=== PATIENT | female | born 1985 | race Caucasian/White ===

== ENCOUNTER 2017-02-05 09:21 | Inpatient (IN) | payer MEDICAID ==
[2017-02-05] VITALS (24 sets, daily range): BP systolic 93–120; BP diastolic 39–58; PULSE 74–96; RESP 17–19; TEMP 98–98.5
[~2017-02-05] VITALS: Ht 167.6 cm; Wt 72.1 kg
[~2017-02-05 09:21] MED LIST: DOXY100T PO; LITH300C2 PO; PERC5TAB12 PO; SERO100T PO
[2017-02-05] MEDS ORDERED: LACTATED RINGER'S 1000 ML INJ 500 ML IV ONE (10:17)
[2017-02-05] MEDS ORDERED: TERBUTALINE INJ 1 MG/ML AMP SQ ONE ×2 (10:30→12:15)
[2017-02-05] MEDS ORDERED: CALCIUM GLUCONATE 10% 1 GM/10 ML VIAL IV PRN (10:30)
[2017-02-05] MEDS ORDERED: SODIUM CHLORIDE 0.9% FLUSH 10 ML FLUSH IV FLUSH PRN (10:30)
[2017-02-05] MEDS ORDERED: ONDANSETRON HCL 4 MG/2 ML VIAL IV PRN (10:30)
[2017-02-05] MEDS ORDERED: ACETAMINOPHEN 325 MG TAB PO PRN (10:30)
--- NOTE | 2017-02-05 10:43 | PD ---
HPI Chief Complaint contractions Date Seen: February 05, 2017 Travel History International Travel<30 Days: No Contact w/Intl Traveler<30Days: No History of Present Illness HPI Ms. Reno is a 31-year-old at an estimated 30 4/7 weeks (7/7 EDC per patient based on prior US at [facility]) presents with complaint of contractions. Patient states that she began feeling contractions yesterday which remitted spontaneously; patient awoke this morning at 2:30 AM with more contractions which gradually increased in intensity and frequency so that they are now occurring every 57 minutes apart. Patient reports 9/10 pressure pain with contractions. Patient states that she is had vaginal bleeding which she describes as mixed in with mucus for the past couple days; patient states that this has lessened today so she only noticed one small clot this morning. Patient also reports recent vaginal discharge. Patient reports normal movement. On review of systems, patient also reveals headache which she describes as migraine-like, chronic weakness, and chronic anxiety regarding social issues which she states gives her chest pain and shortness of breath. Patient does not report dysuria or leg swelling. Patient states she does not have care at this time. She was treated at [facility] for UTI earlier in ; she states ultrasound performed at this time. Patient states she has not had labs drawn this gestation. Patient states that she uses IV Subutex illicitly; she also uses occasional Xanax. Patient denies any known history of STDs. Para: 1 : 6 Miscarriage: 4 History Past Medical History Narrative Medical Patient reports prior UTI during treated at [facility] Polysubstance abuse Ectopic Obstetric History Obstetric History 041 Patient had multiple D&Cs for miscarriages section was low transverse indicated by failure to progress Past Surgical History Narrative Surgical section 1 in 2011 Multiple D&Cs for miscarriages Family History Narrative Family History Arthritis Unspecified heart problems Hepatitis C Cirrhosis Social History Narrative Social History Patient reports using nonprescribed IV Subutex Patient reports occasional Xanax usage Patient denies recent drinking Patient denies other illicit drugs Alcohol Use: No Substance Abuse: Yes Allergies-Medications (Allergen,Severity, Reaction): Coded Allergies: Lortab (Verified Allergy, Severe, Hives, 02/05/17) Penicillin (Verified Allergy, Severe, HIVES, 02/05/17) Home Meds Active Scripts Metronidazole 250 Mg [id number] Mg PO TID #30 TAB Ref 0 Prov:Simba Manzo MD R2 02/05/17 Oxycodone-Acetaminophen 5-325 mg (Percocet 5-325 mg)Oxycodone 5/325 Acetaminophen Tab1 Tab PO Q6H PRN (PAIN) #10 TAB Prov:Leroy Carreno MD 12/15/14 Doxycycline Hyclate 100 mg 100 Mg Tab1 Tab PO Q12H 14 Days Prov:Leroy Carreno MD 12/15/14 Reported Medications Quetiapine Fumarate 100 mg (Seroquel 100 mg)100 Mg TabUnknown Dose PO DIRECTED 12/15/14 [place] Carbonate (Eskalith)300 Mg [id number] Mg PO BID 11/02/14 Review of Systems General / Constitutional: No: Fever, Chills HENT: Headaches Cardiovascular: Chest Pain or Discomfort (with anxiety) Respiratory: Short of Breath (with anxiety) Gastrointestinal: Abdominal Pain (with contraction) Genitourinary: No: Dysuria Physical Exam O2 sat 100% HR 93 RR 20 T 98.3 BP 110/70s Narrative GENERAL: Well-nourished, well-developed patient. SKIN: Warm and dry. scattered scabs. HEAD: Normocephalic and atraumatic. EYES: No scleral icterus. No injection or drainage. ENT: No nasal drainage noted. Mucous membranes pink. Airway patent. NECK: Supple, trachea midline. No JVD. CARDIOVASCULAR: Regular rate and rhythm without murmurs, gallops, or rubs. RESPIRATORY: Breath sounds equal bilaterally. No accessory muscle use. ABDOMEN/GI: Abdomen soft, non-tender, bowel sounds present, no rebound, no guarding Gravid to approximately 28 weeks via fundal height EXTREMITIES: No cyanosis or edema. NEUROLOGICAL: Awake and alert. Motor and sensory function grossly within normal limits GENITOURINARY: Performed by Dr. Watts with speculum followed by cervical check External Genitalia: intact and normal in appearance; no external lesions Vaginal vault: Abundant whitish discharge with mucus / purulent appearance Cervix: Cervical inflammation in association with suspected purulent mucus discharge suggestive of cervicitis Dilatation: Closed Membranes: Initially Amnisure negative Uterine Contractions: Every 4 minutes FHT's: Category: 1 Baseline: 130 Reactive: Y Variability: Mod Decels: None Data Data Orders Admit To Inpatient (02/05/17 ) Vital Signs (Adult) Q4H (02/05/17 10:17) Activity Bed Rest (02/05/17 10:17) Activity Bed Rest With Brp (02/05/17 10:17) Intake + Output NANCY.QSHIFT (02/05/17 10:17) Heart CONTINUOUS (02/05/17 10:17) Lactated Ringer's 1000 Ml Inj (Lr 1000 M (02/05/17 10:17) Sodium Chloride 0.9% Flush (Ns Flush) (02/05/17 10:30) Sodium Chloride 0.9% Flush (Ns Flush) (02/05/17 21:00) Betamethasone Inj (Celestone Soluspan In (02/05/17 12:00) Calcium Gluconate Inj (Calcium Gluconate (02/05/17 10:30) Acetaminophen (Tylenol) (02/05/17 10:30) Ondansetron Inj (Zofran Inj) (02/05/17 10:30) Lactated Ringer's 1000 Ml Inj (Lr 1000 M (02/05/17 10:17) Drug Screen, Random Urine (02/05/17 10:17) Rubella Immune Status (02/05/17 10:17) Hepatitis Profile (02/05/17 10:17) Rapid Plasma Regin (Rpr) W Ttr (02/05/17 10:17) Type And Screen (02/05/17 10:17) Complete Blood Count With Diff (02/05/17 10:17) Special Serology (02/05/17 10:17) Inpatient Certification (02/05/17 ) Terbutaline Inj (Brethine Inj) (02/05/17 10:30) Fentanyl Inj (Fentanyl Inj) (02/05/17 12:00) Lactated Ringer's 1000 Ml Inj (Lr 1000 M (02/05/17 10:30) Fibronectin (02/05/17 10:27) Pamg-1 Test .ONCE (02/05/17 10:27) MDM Medical Record Reviewed: Yes Narrative Course / MDM 31-year-old at an estimated 30 4/7 weeks (7/7 EDC per patient based on prior US at [facility]) presents with complaint of contractions -No care -Cervical exam suggestive of mucus/purulent discharge in association with cervicitis -Contractions every 47 minutes on CTG -Category 1 rhythm -Substance abuse during with IV Subutex Plan: - labs ordered -Mucopurulent cervicitis -Due to penicillin allergy, will treat with azithromycin and clindamycin -Will obtain wet prep, urinary Chlamydia, urinary gonorrhea -Contractions -Will give patient 2 L LR boluses -Will give terbutaline 25 mg -Will give fentanyl 50 g -We'll check fibronectin due to is a contractions -We'll check Amnisure due to large quantity of fluid (mucopurulent) in the vaginal vault -Continue to monitor heart rate, presence of contractions -Substance abuse- will check UDS Updated Plan: Will plan to admit patient for further monitoring and Betamethasone x2 doses. Diagnosis Diagnosis: Primary Impression: Cervicitis Additional Impressions: contractions Drug use No care in current Disposition: 01 DISCHARGE HOME Condition: Stable Scripts Metronidazole 250 Mg [id number] Mg PO TID #30 TAB Ref 0 Prov:Simba Manzo MD R2 02/05/17 Referrals: [facility] 1 week Patient Instructions: Abdominal Pain in (ED), Early Labor Signs (ED) , Labor (ED), General Instructions Simba Manzo MD R2 February 05, 2017 10:43
[2017-02-05] MEDS: LACTATED RINGER'S 1000 ML INJ 1,000 ML IV SCH ×5 (11:03→22:55)
[2017-02-05 11:29] LABS: BACTERIA, URINE FEW /hpf; BARBITURATES, URINE NEG (NEG); BLOOD, URINE SMALL (NEG); COMMENT (UR) CULTURE INDICATED; CULTURE IF INDICATED CULTURE INDICATED; GLUCOSE,URINE NEG (NEG); KETONE, URINE NEG (NEG); MUCUS URINE FEW /lpf (OCC); NITRITE,URINE NEG (NEG); SQUAMOUS EPITHELIAL CELL URINE 10 /hpf (0-5); TRANSITIONAL EPI CELLS, URINE <1 /hpf; URINE COLOR DARK-YELLOW (YELLW/STRAW)
[2017-02-05 11:37] LABS: AMPHETAMINE, URINE POS (NEG); COCAINE, URINE POS (NEG)
[2017-02-05] MEDS ORDERED: METR250T15 PO (11:42)
[2017-02-05] MEDS ORDERED: AZITHROMYCIN IV ONE ×2 (12:00)
[2017-02-05] MEDS ORDERED: CLINDAMYCIN INJ 900 MG in SODIUM CHLORIDE 0.9% INJ 100 ML IV ONE (12:00)
[2017-02-05] MEDS ORDERED: BETAMETHASONE SOD PHOS/ACETATE SUSP 30 MG/5 ML VIAL IM SCH (12:00)
[2017-02-05] MEDS ORDERED: SODIUM CHLORID 0.9% IV ONE (12:00)
[2017-02-05] MEDS ORDERED: SODIUM CHLOR 0.9% IV ONE (12:00)
[2017-02-05] MEDS ORDERED: BETAMETHASONE SOD PHOS/ACETATE SUSP 30 MG/5 ML VIAL IM ONE (12:30)
--- NOTE | 2017-02-05 12:36 | HHI.HP ---
HPI Chief Complaint Abdominal pain Date Seen: February 05, 2017 Travel History International Travel<30 Days: No Contact w/Intl Traveler<30Days: No History of Present Illness HPI Patient 31-year-old white female previous at 30 weeks with little to no care presents complaining of abdominal pain. heart rate tracing is reactive and she is jerald every 4-5 minutes. No leakage of fluid patient has a long history of drug use and abuse she is on IV Subutex now takes benzodiazepine Para: 1 : 6 : 4 History Past Surgical History Narrative Surgical 1 and multiple elective terminations Social History Narrative Social History Patient's known drug abuser and is on IV Subutex abdominal street somewhere and takes occasional benzodiazepines however her drug screen today was positive for amphetamines and cocaine Alcohol Use: Yes Tobacco Use: Yes Substance Abuse: Yes Allergies-Medications (Allergen,Severity, Reaction): Coded Allergies: Lortab (Unverified Allergy, Severe, Hives, 12/15/14) Penicillin (Verified Allergy, Severe, HIVES, 12/15/14) Home Meds Active Scripts Metronidazole 250 Mg [id number] Mg PO TID #30 TAB Ref 0 Prov:Simba Manzo MD R2 02/05/17 Oxycodone-Acetaminophen 5-325 mg (Percocet 5-325 mg)Oxycodone 5/325 Acetaminophen Tab1 Tab PO Q6H PRN (PAIN) #10 TAB Prov:Leroy Carreno MD 12/15/14 Doxycycline Hyclate 100 mg 100 Mg Tab1 Tab PO Q12H 14 Days Prov:Leroy Carreno MD 12/15/14 Reported Medications Quetiapine Fumarate 100 mg (Seroquel 100 mg)100 Mg TabUnknown Dose PO DIRECTED 12/15/14 [place] Carbonate (Eskalith)300 Mg [id number] Mg PO BID 11/02/14 Review of Systems General / Constitutional: No: Fever, Weight Gain, Chills, Other Eyes: No: Diploplia, Blurred Vision, Visual changes, Pain, Photophobia HENT: No: Headaches, Vertigo, Lightheadedness Cardiovascular: No: Irregular Rhythm, Chest Pain or Discomfort, Palpitations, Tachycardia, Syncope, Varicosities, Edema, Cyanosis Respiratory: No: Cough, Short of Breath, Other Gastrointestinal: Abdominal Pain Genitourinary: No: Decreased Urinary Output, Oliguria Musculoskeletal: No: Limited ROM, Weakness, Cramping, Edema, Pain Skin: No Rash, No Itching, No Dryness, No Lumps, No Change in Pigmentation, No Change in Nails, No Alopecia, No Lesions Neurologic: No: Weakness, Dizziness, Syncope, Focal Abnormalities, Coordination Problem, Headache, Slurred Speech, Seizures Psychiatric: No: Depression, Suicidal Ideations, Homicidal Ideation Endocrine: No: Heat Intolerance, Cold Intolerance, Polydipsia, Polyuria, Other Physical Exam Vital Signs Date Time Temp Pulse Resp B/P Pulse Ox O2 Delivery O2 Flow Rate FiO2 02/05/17 11:10 81 02/05/17 11:05 81 02/05/17 11:00 79 02/05/17 10:55 78 02/05/17 10:50 74 02/05/17 10:45 79 02/05/17 10:40 81 02/05/17 10:35 93 02/05/17 10:30 78 02/05/17 10:25 75 02/05/17 10:20 79 02/05/17 10:15 81 02/05/17 10:10 77 02/05/17 10:05 80 02/05/17 10:00 80 Narrative GENERAL: Well-nourished, well-developed patient. SKIN: Warm and dry. HEAD: Normocephalic and atraumatic. EYES: No scleral icterus. No injection or drainage. ENT: No nasal drainage noted. Mucous membranes pink. Airway patent. NECK: Supple, trachea midline. No JVD. CARDIOVASCULAR: Regular rate and rhythm without murmurs, gallops, or rubs. RESPIRATORY: Breath sounds equal bilaterally. No accessory muscle use. BREASTS: Bilateral exam showed no masses , no retractions, no nipple discharge. ABDOMEN/GI: Abdomen soft, non-tender, bowel sounds present, no rebound, no guarding Gravid to [30-] weeks size Fundal Height: [28-] GENITOURINARY: External Genitalia: intact and normal in appearance Speculum exam in the vagina shows rebeca pus per cervical os. Just pooling of pus in the posterior fornix, pus can be seen coming from the cervix, amnio sure done twice was negative fibronectin done which was positive that was done through a pool of pus, wet prep was positive for clue cells but no trichomoniasis or yeast Cervix: [Closed-] Dilatation: [-Closed] Effacement: [-] Thick Station: [-3] Membranes: [intact ] Uterine Contractions: [Initially every 4 minutes after hydration and terbutaline every 10-12 minutes-] FHT's: Category: [-1] Baseline: [-133] Reactive: [-yes] Variability: [-mod] Decels: [-none] EXTREMITIES: No cyanosis or edema. BACK: Nontender without obvious deformity. No CVA tenderness. NEUROLOGICAL: Awake and alert. Motor and sensory grossly within normal limits. Five out of 5 muscle strength in all muscle groups. Normal speech. Data Data Orders Admit To Inpatient (02/05/17 ) Vital Signs (Adult) Q4H (02/05/17 10:17) Activity Bed Rest (02/05/17 10:17) Activity Bed Rest With Brp (02/05/17 10:17) Intake + Output NANCY.QSHIFT (02/05/17 10:17) Heart CONTINUOUS (02/05/17 10:17) Lactated Ringer's 1000 Ml Inj (Lr 1000 M (02/05/17 10:17) Sodium Chloride 0.9% Flush (Ns Flush) (02/05/17 10:30) Sodium Chloride 0.9% Flush (Ns Flush) (02/05/17 21:00) Betamethasone Inj (Celestone Soluspan In (02/05/17 12:00) Calcium Gluconate Inj (Calcium Gluconate (02/05/17 10:30) Acetaminophen (Tylenol) (02/05/17 10:30) Ondansetron Inj (Zofran Inj) (02/05/17 10:30) Lactated Ringer's 1000 Ml Inj (Lr 1000 M (02/05/17 10:17) Rubella Immune Status (02/05/17 10:17) Hepatitis Profile (02/05/17 10:17) Rapid Plasma Regin (Rpr) W Ttr (02/05/17 10:17) Type And Screen (02/05/17 10:17) Complete Blood Count With Diff (02/05/17 10:17) Special Serology (02/05/17 10:17) Inpatient Certification (02/05/17 ) Terbutaline Inj (Brethine Inj) (02/05/17 10:30) Fentanyl Inj (Fentanyl Inj) (02/05/17 12:00) Lactated Ringer's 1000 Ml Inj (Lr 1000 M (02/05/17 10:30) Fibronectin (02/05/17 10:27) Pamg-1 Test .ONCE (02/05/17 10:27) Wet Prep Profile (02/05/17 10:40) Urinalysis - C+S If Indicated (02/05/17 10:40) Ob/Psych Drug Screen, Urine (02/05/17 10:40) Azithromycin Inj (Zithromax Inj) (02/05/17 12:00) Clindamycin Inj (Cleocin Inj) (02/05/17 12:00) Gc And Chlamydia Pcr (02/05/17 10:59) Urine Culture (02/05/17 10:30) Azithromycin Inj (Zithromax Inj) (02/05/17 12:00) Ur Bath Salts (02/05/17 10:30) Ur Heroin (02/05/17 10:30) Ur K2 Spice (02/05/17 10:30) Ur Ecstasy (02/05/17 10:30) Ur Methadone (02/05/17 10:30) Phencyclidine Urine (Pcp) (02/05/17 10:30) Fentanyl Inj (Fentanyl Inj) (02/05/17 12:15) Terbutaline Inj (Brethine Inj) (02/05/17 12:15) Betamethasone Inj (Celestone Soluspan In (02/05/17 12:30) Equip, Iv Pump Use Of (02/05/17 12:23) Labs + FFN Laboratory Tests Test 02/05/17 10:30 Urine Color DARK-YELLOW Urine Turbidity HAZY Urine pH 6.0 Urine Specific [place] 1.025 Urine Protein TRACE Urine Glucose (UA) NEG Urine Ketones NEG Urine Occult Blood SMALL Urine Nitrite NEG Urine Bilirubin SMALL Urine Urobilinogen 2.0 Urine Leukocyte Esterase LARGE Urine RBC 4 Urine WBC 84 Urine WBC Clumps RARE Urine Squamous Epithelial 10 Cells Urine Transitional Epithelial <1 Cells Urine Bacteria FEW Urine Mucus FEW Microscopic Urinalysis Comment CULTURE INDICATED Clue Cells (Wet Prep) PRESENT Vaginal Trichomonas (Wet Prep) NONE SEEN Vaginal Yeast (Wet Prep) NONE SEEN Fibronectin POSITIVE Urine Opiates Screen NEG Urine Barbiturates Screen NEG Urine Amphetamines Screen POS Urine Benzodiazepines Screen POS Urine Cocaine Screen POS Urine Cannabinoids Screen NEG Date/Time Procedure Status Source Growth 02/05/17 10:30 Urine Culture Received Urine Clean Catch Pending Assessment/Plan Assessment and Plan Patient is 31-year-old white female previous now 30 weeks gestation with very little care. With a EDC of 04/12/15, presents for abdominal pain. He is having some vaginal discharge and leakage amnio sure was negative 2 wet prep done from a speculum exam was positive for clue cells and there is a purulent cervicitis noted with a large amount of pus in the posterior vagina, fibronectin done through that pool of pus was positive patient is given a liter of IV fluid 2 doses subcutaneous terbutaline and a 50 mics of IV fentanyl this demonstrates the contractions about every 10-12 minutes. Also given IV Zithromax and clindamycin for her infection Impression-- purulent cervicitis at 30 weeks gestation in a previous that is stimulating contractions and with a positive fibronectin feeling more workup is needed. She's received IM steroids now we'll continue her IV antibiotics now and since she has no transportation again get back care for another shot of steroids will just keep her for observation, check cervical length ultrasound and estimated weight and growth parameters on ultrasound , continued IV antibiotics and watch for contraction activity. Tomorrow if stable and not jerald we'll give her second dose of steroids and have her discharged on oral Flagyl and Zithromax Toby aWtts II, MD February 05, 2017 12:36
[2017-02-05 13:14] LABS: CHLAMYDIA PCR NOT DETECTED (NOT DETECT); NEISSERIA PCR NOT DETECTED (NOT DETECT)
[2017-02-05 14:24] LABS: AUTOMATED NEUTROPHIL # 16.4 TH/MM3 (1.8-7.7); BASOPHIL % 0.1 % (0.0-2.0); EOSINOPHIL # 0.1 TH/MM3 (0-0.4); EOSINOPHIL % 0.3 % (0.0-4.0); HEMATOCRIT 26.5 % (35.0-46.0); HEMO FLAGS DIFF FINAL; LYMPH % 12.6 % (9.0-44.0); LYMPHOCYTE # 2.5 TH/MM3 (1.0-4.8); MEAN CELL VOLUME 81.3 FL (80.0-100.0); MEAN CORPUSCULAR HEMOGLOBIN 26.5 PG (27.0-34.0); MEAN CORPUSCULAR HGB CONC 32.6 % (32.0-36.0); MONO % 5.6 % (0.0-8.0); NEUT % 81.4 % (16.0-70.0); PLATELET COUNT 467 TH/MM3 (150-450); RED BLOOD COUNT 3.26 MIL/MM3 (4.00-5.30); WHITE BLOOD COUNT 20.1 TH/MM3 (4.0-11.0)
[2017-02-05 15:05] LABS: RUBELLA IGG ANTIBODY 156.8 IU/mL (10.0-500.0); RUBELLA STATUS IMMUNE (IMMUNE)
[2017-02-05] MEDS: CLINDAMYCIN INJ 900 MG in SODIUM CHLORIDE 0.9% INJ 100 ML IV SCH (20:30)
[2017-02-05] MEDS ORDERED: TERBUTALINE INJ 1 MG/ML AMP SQ PRN (20:30)
[2017-02-05] MEDS: LORazepam 2 MG/ML VIAL IM PRN (20:43)
[2017-02-05] MEDS: SODIUM CHLORIDE 0.9% FLUSH 10 ML FLUSH IV FLUSH SCH (21:00)
[2017-02-05] MEDS ORDERED: NICOTINE 14 MG/24 HR PATCH T-DERMAL ONE (21:15)
[2017-02-06] VITALS (10 sets, daily range): BP systolic 95–111; BP diastolic 45–65; PULSE 72–96; RESP 16–20; TEMP 97.2–97.8; O2SAT 97–100
[2017-02-06] MEDS ORDERED: CLINDAMYCIN INJ 900 MG in SODIUM CHLORIDE 0.9% INJ 100 ML IV SCH ×2
[2017-02-06] MEDS: LORazepam 2 MG/ML VIAL IM PRN ×4 (04:54→20:51)
[2017-02-06] MEDS: CLINDAMYCIN INJ 900 MG in SODIUM CHLORIDE 0.9% INJ 100 ML IV SCH ×2 (04:54→11:18)
[2017-02-06] MEDS: LACTATED RINGER'S 1000 ML INJ 1,000 ML IV SCH ×6 (04:55→14:09)
--- NOTE | 2017-02-06 07:37 | PD.OB.ANTE ---
Subjective Diagnosis: (1) contractions Diagnosis: Principal (2) No care in current Diagnosis: Principal Interval History Ms. Reno was afebrile with stable vital signs overnight. Patient continues to reports significant abdominal pain this morning; patient suggests this occurs in intervals and is similar to contractions. Objective Vital Signs Vital Signs Date Time Temp Pulse Resp B/P Pulse Ox O2 Delivery O2 Flow Rate FiO2 02/06/17 01:39 80 95/45 02/05/17 19:26 78 93/42 02/05/17 19:25 98.0 02/05/17 18:19 81 115/56 02/05/17 18:13 98.0 02/05/17 18:13 98.5 17 02/05/17 18:05 82 95/39 02/05/17 15:14 89 120/58 02/05/17 15:13 19 02/05/17 14:11 98.2 02/05/17 13:34 96 113/51 02/05/17 13:34 18 02/05/17 11:10 81 02/05/17 11:05 81 02/05/17 11:00 79 02/05/17 10:55 78 02/05/17 10:50 74 02/05/17 10:45 79 02/05/17 10:40 81 02/05/17 10:35 93 02/05/17 10:30 78 02/05/17 10:25 75 02/05/17 10:20 79 02/05/17 10:15 81 02/05/17 10:10 77 02/05/17 10:05 80 02/05/17 10:00 80 Lab & Micro Results Test 02/05/17 02/05/17 10:30 14:10 Urine Color DARK-YELLOW Urine Turbidity HAZY Urine pH 6.0 Urine Specific [place] 1.025 Urine Protein TRACE mg/dL Urine Glucose (UA) NEG mg/dL Urine Ketones NEG mg/dL Urine Occult Blood SMALL Urine Nitrite NEG Urine Bilirubin SMALL Urine Urobilinogen 2.0 MG/DL Urine Leukocyte Esterase LARGE Urine RBC 4 /hpf Urine WBC 84 /hpf Urine WBC Clumps RARE Urine Squamous Epithelial 10 /hpf Cells Urine Transitional Epithelial <1 /hpf Cells Urine Bacteria FEW /hpf Urine Mucus FEW /lpf Microscopic Urinalysis Comment CULTURE INDICATED Clue Cells (Wet Prep) PRESENT Vaginal Trichomonas (Wet Prep) NONE SEEN Vaginal Yeast (Wet Prep) NONE SEEN Fibronectin POSITIVE Urine Opiates Screen NEG Urine Barbiturates Screen NEG Urine Amphetamines Screen POS Urine Benzodiazepines Screen POS Urine Cocaine Screen POS Urine Cannabinoids Screen NEG Chlamydia trachomatis DNA NOT DETECTED (PCR) Neisseria gonorrhoeae DNA NOT DETECTED (PCR) White Blood Count 20.1 TH/MM3 Red Blood Count 3.26 MIL/MM3 Hemoglobin 8.6 GM/DL Hematocrit 26.5 % Mean Corpuscular Volume 81.3 FL Mean Corpuscular Hemoglobin 26.5 PG Mean Corpuscular Hemoglobin 32.6 % Concent Red Cell Distribution Width 14.0 % Platelet Count 467 TH/MM3 Mean Platelet Volume 8.0 FL Neutrophils (%) (Auto) 81.4 % Lymphocytes (%) (Auto) 12.6 % Monocytes (%) (Auto) 5.6 % Eosinophils (%) (Auto) 0.3 % Basophils (%) (Auto) 0.1 % Neutrophils # (Auto) 16.4 TH/MM3 Lymphocytes # (Auto) 2.5 TH/MM3 Monocytes # (Auto) 1.1 TH/MM3 Eosinophils # (Auto) 0.1 TH/MM3 Basophils # (Auto) 0.0 TH/MM3 CBC Comment DIFF FINAL Differential Comment Rubella Immunity Screen IMMUNE Rubella Antibody, Quantitative 156.8 IU/mL Blood Type A POSITIVE Antibody Screen NEGATIVE Date/Time Procedure Status Source Growth 02/05/17 10:30 Urine Culture Received Urine Clean Catch Pending Physical Exam GENERAL: Well-nourished, well-developed patient. SKIN: Warm and dry. scattered scabs. HEAD: Normocephalic and atraumatic. EYES: No scleral icterus. No injection or drainage. ENT: No nasal drainage noted. Mucous membranes pink. Airway patent. NECK: Supple, trachea midline. No JVD. CARDIOVASCULAR: Regular rate and rhythm without murmurs, gallops, or rubs. RESPIRATORY: Breath sounds equal bilaterally. No accessory muscle use. ABDOMEN/GI: Abdomen soft, non-tender, bowel sounds present, no rebound, no guarding Gravid to approximately 28 weeks via fundal height EXTREMITIES: No cyanosis or edema. NEUROLOGICAL: Awake and alert. Motor and sensory function grossly within normal limits GENITOURINARY: Performed by Dr. Watts 02/05 with speculum followed by cervical check External Genitalia: intact and normal in appearance; no external lesions Vaginal vault: Abundant whitish discharge with mucus / purulent appearance Cervix: Cervical inflammation in association with suspected purulent mucus discharge suggestive of cervicitis Dilatation: Closed Membranes: Initially Amnisure negative Uterine Contractions: none/irritability FHT's: Category: 1 Baseline: 130 Reactive: Y Variability: Mod Decels: None Assessment and Plan Problem List: (1) contractions Status: Acute (2) No care in current Status: Acute Assessment and Plan 31-year-old at an estimated 30 4/7 weeks (7/7 EDC per patient based on prior US at [facility]) presents with complaint of contractions -No care -H CS delivery Plan: - labs ordered -Mucopurulent cervicitis Impression: Wet prep with Clue cells. Chlamydia/Gonorrhea negative. -Due to penicillin allergy, will treat with azithromycin and clindamycin - Contractions Impression: FFN +. Amnisure negative x2 US obtained 02/06: GA by US- 29 1/7 weeks. Cervical length not obtained as patient declined TV US. Placenta posterior, grade 2-3. Fetus with isolated liver calcification and echogenic bowel. Torch titers, CF screen, and Parvo immunoglobulins recommended. Contractions stopped on EFM 5/2. -s/p 2 L LR boluses -s/p terbutaline 25 mg x2 -Fentanyl 50 g as needed for pain -Continue CTG -Will give Betamethasone 12mg x2 (1300 5/2 first dose) -Continue to monitor heart rate, presence of contractions -Substance abuse Impression: UDS with amphetamines, benzodiazepines, cocaine. Patient admitted to substance abuse during with IV Subutex -Patient will need follow-up with OB in near future to establish -CM consulted for assistance with resources Simba Manzo MD R2 February 06, 2017 07:37
[2017-02-06] MEDS ORDERED: BUPIVACAINE LIPOSOME PF 1.3% 20 ML VIAL ONE (07:43)
[2017-02-06] MEDS: NICOTINE 14 MG/24 HR PATCH T-DERMAL SCH (08:59)
[2017-02-06] MEDS: SODIUM CHLORIDE 0.9% FLUSH 10 ML FLUSH IV FLUSH SCH (09:00)
[2017-02-06] MEDS ORDERED: TERBUTALINE INJ 1 MG/ML AMP SQ ONE (09:30)
[2017-02-06 10:39] LABS: AUTOMATED NEUTROPHIL # 21.9 TH/MM3 (1.8-7.7); BASOPHIL % 0.1 % (0.0-2.0); HEMATOCRIT 25.3 % (35.0-46.0); HEMO FLAGS DIFF FINAL; LYMPH % 9.5 % (9.0-44.0); LYMPHOCYTE # 2.4 TH/MM3 (1.0-4.8); MEAN CELL VOLUME 81.6 FL (80.0-100.0); MEAN CORPUSCULAR HEMOGLOBIN 26.9 PG (27.0-34.0); MEAN CORPUSCULAR HGB CONC 32.9 % (32.0-36.0); MONO % 4.7 % (0.0-8.0); NEUT % 85.7 % (16.0-70.0); PLATELET COUNT 456 TH/MM3 (150-450); RED CELL DISTRIBUTION WIDTH 13.8 % (11.6-17.2); WHITE BLOOD COUNT 25.6 TH/MM3 (4.0-11.0)
[2017-02-06] MEDS ORDERED: AZITHROMYCIN INJ 500 MG in SODIUM CHLOR 0.9% 250 ML INJ 250 ML IV ONE (12:00)
[2017-02-06] MEDS ORDERED: BETAMETHASONE SOD PHOS/ACETATE SUSP 30 MG/5 ML VIAL IM ONE (12:30)
[2017-02-06] MEDS: BUPRENORPHINE HCL 8 MG SUBLINGUAL TAB SL SCH ×2 (12:47→22:30)
[2017-02-06] MEDS ORDERED: MAGNESIUM SULFATE 4 GM PREMIX 100 ML ONE (13:49)
[2017-02-06] MEDS ORDERED: MAGNESIUM SULFATE 40 GM PREMIX 1,000 ML ONE (13:49)
--- NOTE | 2017-02-06 13:51 | HHI.PR ---
APPLIQUER ZIGZAG Note Note Called to see patient for abdominal pain. Patient was due to be discharged today on antibiotics with possible detox as an outpatient. She is complaining of increasing abdominal pain over the past hour with intermittent occasional contractions noted on the monitor heart rate tracing approximately 140. Cervix was checked and it is 1/C/-1, membranes are intact vertex presentation. Patient has a previous history of section plan to move her to the labor room and start magnesium sulfate for labor prophylaxis and neuro protection. Mirna Kinney MD February 06, 2017 13:51
[2017-02-06] MEDS ORDERED: ONDANSETRON HCL 4 MG/2 ML VIAL IV PRN (14:00)
[2017-02-06] MEDS ORDERED: CALCIUM GLUCONATE 10% 1 GM/10 ML VIAL IV PRN (14:00)
[2017-02-06] MEDS ORDERED: SODIUM CHLORIDE 0.9% FLUSH 10 ML FLUSH IV FLUSH PRN ×2 (14:00→18:15)
[2017-02-06] MEDS ORDERED: MAGNESIUM SULFATE 4 GM PREMIX 100 ML IV ONE (14:00)
[2017-02-06 14:03] LABS: RAPID PLASMA REAGIN SCREEN NON-REACTIVE (NON-REACTVE)
[2017-02-06] MEDS ORDERED: MAGNESIUM SULFATE 40 GM PREMIX 1,000 ML IV SCH (14:30)
[2017-02-06] MEDS ORDERED: LACTATED RINGER'S 1000 ML INJ 1,000 ML IV SCH ×4 (14:30→23:13)
[2017-02-06] MEDS ORDERED: LACTATED RINGER'S 1000 ML INJ 1,000 ML IV ONE (15:29)
[2017-02-06] MEDS ORDERED: CLINDAMYCIN PHOS 600 MG/4 ML VIAL ONE (15:55)
[2017-02-06] MEDS ORDERED: ACETAMINOPHEN 1000 MG/100 ML VIAL IV ONE (15:55)
[2017-02-06] MEDS ORDERED: OXYTOCIN 10 UNIT/ML AMP ONE (15:55)
[2017-02-06] MEDS ORDERED: EPIDURAL-DO NOT ADMINISTER ANTICOAGULANTS PRN (16:12)
[2017-02-06] MEDS ORDERED: EPIDURAL-DIPHENHYDRAMINE HCL 50 MG/ML VIAL IV PUSH PRN (16:12)
[2017-02-06] MEDS ORDERED: EPIDURAL-DIPHENHYDRAMINE HCL 50 MG CAP PO PRN (16:12)
[2017-02-06] MEDS ORDERED: EPIDURAL-NO SYSTEMIC NARCOTICS PRN (16:12)
[2017-02-06] MEDS ORDERED: EPIDURAL-NALOXONE HCL 0.4 MG/ML AMP IV PRN (16:12)
[2017-02-06] MEDS ORDERED: CLINDAMYCIN INJ 600 MG in SODIUM CHLORIDE 0.9% INJ 100 ML IV SCH (16:30)
[2017-02-06] MEDS ORDERED: CITRIC ACID-SODIUM CITRATE LIQ 30 ML UDC PO SCH (17:00)
[2017-02-06] MEDS ORDERED: MORPHINE SULFATE PF 5 MG/10 ML VIAL ONE (17:04)
[2017-02-06] MEDS ORDERED: BUPRENORPHINE HCL 0.3 MG/1 ML VIAL ONE (17:10)
[2017-02-06 17:22] LABS: BLOOD GAS BASE EXCESS -2.3 mmol/L (-2-2); BLOOD GAS O2 HGB SATURATION 25 % (90-100); CORD BLOOD GAS HCO3 23 mmol/L (21-29); CORD BLOOD GAS PCO2 49 mmHG (34-78)
[2017-02-06 17:23] LABS: CORD BLOOD GAS PO2 17 mmHG (3.0-40.0); DRAW SITE CORD BLOOD; STAT NO
--- NOTE | 2017-02-06 17:43 | PD.OB.DELI ---
Procedure Note Section Procedure Pre Op Diagnosis: (1) Drug use (2) contractions (3) No care in current (4) 30 weeks gestation of (5) Previous delivery affecting , antepartum Post Op Diagnosis: Performed by Mirna Kinney Procedure: Repeat Low Transverse Sec Indication for delivery: Desired elective repeat , Other (active labor) Informed consent obtained: For anesthesia, For procedure Confirmed correct: Patient, Procedure, Site, Time-out taken Anesthesia: Spinal, Other (TAMI block post-op) Medication prior to procedure: Antacids, Antibiotics, IV Urinary catheter: Inserted using sterile technique Sterile preparation: Duraprep Position: Supine with wedge to left side Operative Features Skin Incision: Pfannenstiel Uterine Incision: Low transverse w/knife / blunt ext Membranes Ruptured: Previously, Appearance of fluid (light meconium) Presentation: Occiput posterior Time of : 16:36 Delivery of infant: Uneventful : Female One Minute : 8 Five Minute : 8 Weight: 1630gms Status of : Viable, Cord blood Placenta delivered: Intact, Sent to pathology Medications: Oxytocin Estimated blood loss: 500cc Procedure tolerated: Well Maternal Condition: Stable Condition: Stable Mirna Kinney MD February 06, 2017 17:43
[2017-02-06] MEDS ORDERED: OXYTOCIN 30 UNITS-500ML PREMIX 500 ML IV ONE (18:15)
[2017-02-06] MEDS ORDERED: oxyCODONE/ACETAMINOPHEN 5 MG/325 MG TAB PO PRN (18:15)
[2017-02-06] MEDS ORDERED: ONDANSETRON HCL 4 MG/2 ML VIAL IV PUSH PRN (18:15)
[2017-02-06] MEDS ORDERED: SIMETHICONE 80 MG CHEWABLE TAB PO PRN (18:15)
[2017-02-06] MEDS ORDERED: SODIUM CHLORIDE 0.9% FLUSH 10 ML FLUSH IV FLUSH SCH ×2 (21:00)
[2017-02-06 21:14] LABS: AUTOMATED NEUTROPHIL # 21.6 TH/MM3 (1.8-7.7); BASOPHIL % 0.1 % (0.0-2.0); HEMATOCRIT 23.3 % (35.0-46.0); HEMO FLAGS DIFF FINAL; LYMPH % 7.3 % (9.0-44.0); LYMPHOCYTE # 1.8 TH/MM3 (1.0-4.8); MEAN CELL VOLUME 80.9 FL (80.0-100.0); MEAN CORPUSCULAR HEMOGLOBIN 27.1 PG (27.0-34.0); MEAN CORPUSCULAR HGB CONC 33.5 % (32.0-36.0); MONO % 5.1 % (0.0-8.0); NEUT % 87.5 % (16.0-70.0); PLATELET COUNT 471 TH/MM3 (150-450); RED BLOOD COUNT 2.88 MIL/MM3 (4.00-5.30); WHITE BLOOD COUNT 24.6 TH/MM3 (4.0-11.0)
[2017-02-06 21:16] LABS: BLOOD, URINE MOD (NEG); COMMENT (UR) CULT NOT INDICATED; CULTURE IF INDICATED CULT NOT INDICATED; GLUCOSE,URINE NEG (NEG); KETONE, URINE NEG (NEG); MUCUS URINE FEW /lpf (OCC); NITRITE,URINE NEG (NEG); URINE COLOR YELLOW (YELLW/STRAW)
[2017-02-06 21:22] LABS: AMPHETAMINE, URINE NEG (NEG); BARBITURATES, URINE NEG (NEG); COCAINE, URINE NEG (NEG)
[2017-02-07 01:20] VITALS: BP 106/57; PULSE 78; RESP 18; TEMP 98.3
[2017-02-07] MEDS: oxyCODONE/ACETAMINOPHEN 5 MG/325 MG TAB PO PRN ×5 (01:21→22:08)
[2017-02-07] MEDS: IBUPROFEN 600 MG TAB PO PRN ×3 (01:21→17:39)
[2017-02-07] MEDS ORDERED: OXYTOCIN 30 UNITS-500ML PREMIX 500 ML IV PRN (04:15)
[2017-02-07 05:54] LABS: AUTOMATED NEUTROPHIL # 19.2 TH/MM3 (1.8-7.7); BASOPHIL % 0.1 % (0.0-2.0); HEMATOCRIT 21.4 % (35.0-46.0); LYMPH % 9.6 % (9.0-44.0); LYMPHOCYTE # 2.2 TH/MM3 (1.0-4.8); MEAN CELL VOLUME 81.4 FL (80.0-100.0); MEAN CORPUSCULAR HEMOGLOBIN 27.1 PG (27.0-34.0); MEAN CORPUSCULAR HGB CONC 33.3 % (32.0-36.0); NEUT % 85.3 % (16.0-70.0); PLATELET COUNT 448 TH/MM3 (150-450); RED BLOOD COUNT 2.63 MIL/MM3 (4.00-5.30); RED CELL DISTRIBUTION WIDTH 14.2 % (11.6-17.2); WHITE BLOOD COUNT 22.5 TH/MM3 (4.0-11.0)
[2017-02-07 06:10] LABS: HEMO FLAGS AUTO DIFF
--- NOTE | 2017-02-07 07:26 | MP ---
cc: BISI POSEY M.D. DATE OF SURGERY 02/06/2017 PREOPERATIVE DIAGNOSIS 1. Substance abuse during . 2. labor 3. No care for current . 4. 30 weeks gestation. 5. Previous section, desires repeat. POSTOPERATIVE DIAGNOSIS 1. Substance abuse during . 2. labor 3. No care for current . 4. 30 weeks gestation. 5. Previous section, desires repeat. PROCEDURE Repeat low transverse section without extension ESTIMATED BLOOD LOSS 500 cc ANESTHESIA Spinal DRAINS Escobar to gravity. COMPLICATIONS No complications. MEDICATIONS The patient was already on: 1. Ceftriaxone for cervicitis an additional 2. Clindamycin was given IV. FINDINGS 1. Light meconium stained amniotic fluid. 2. Infant female on the vertex presentation, occiput posterior time of was 1636 female, 's are 8 and 8, baby weighed 1630 grams, pathology placenta. DESCRIPTION OF PROCEDURE The patient taken back to the operating room, prepped and draped in the usual sterile fashion and placed in the dorsosupine position with a wedge to her left side. After adequate anesthetic was obtained, a Pfannenstiel incision was made through scar and taken down to the fascia. The fascia was nicked in the midline, extended bilaterally and taken off the rectus muscles. The muscles were divided in the midline. The anterior peritoneum was entered. The vesicouterine peritoneum was noted to be inferior to the hysterotomy incision. A hysterotomy incision was made and bluntly extended bilaterally. The amniotic fluid was noted to have meconium. The infant was delivered into the operative field, the rest of the body was delivered and handed off to the resuscitation team after a 45-second delayed cord clamping was done per request from the product test engineer. The cord blood was sent and the placenta was delivered intact spontaneously and endometrial cavity was clear with moist laparotomy sponge. Placenta was sent to pathology. The hysterotomy incision was repaired using running locking and one chromic suture with good hemostasis at closure. Gutters were rendered free of all blood and clot material. The fascia was closed with a #1 PDS in a subcuticular suture and a 3-0 Monocryl was placed in the skin. The patient tolerated the procedure well. She was taken back to the PACU where a Juan block will be placed for assistance in postoperative pain management. MD ARSH Robin/ELOISE /5:47 PM /7:14 AM
[2017-02-07 07:40] VITALS: BP 100/53; PULSE 73; RESP 18; TEMP 97.5
[2017-02-07] MEDS: CLINDAMYCIN INJ 900 MG in SODIUM CHLORIDE 0.9% INJ 100 ML IV SCH ×3 (08:00)
[2017-02-07] MEDS: NICOTINE 14 MG/24 HR PATCH T-DERMAL SCH (08:43)
--- NOTE | 2017-02-07 09:04 | HHI.OB ---
Subjective Post Operative Day: 1 Remarks Ms. Reno is a 31 yo who is POD 1 from CS (repeat) 02/06 at 1636 ( delivered at 30 5/7 weeks due to labor). Ms. Reno states that she is doing okay at this time; patient has been able to ambulate to bathroom and urinate but is still sore. Patient requests additional pain medication for abdominal pain. Per nursing staff who were present at bedside, patient has light vaginal bleeding. No shortness of breath or leg swelling. (Simba Manzo MD R2) Objective Vitals/I&O Vital Signs Date Time Temp Pulse Resp B/P Pulse Ox O2 Delivery O2 Flow Rate FiO2 02/07/17 07:40 97.5 73 18 02/07/17 07:40 100/53 02/07/17 01:20 78 106/57 02/07/17 01:20 98.3 18 02/06/17 19:20 97.8 02/06/17 19:20 74 18 111/61 02/06/17 17:50 72 16 105/62 100 02/06/17 17:35 76 16 108/65 100 02/06/17 17:20 16 100 02/06/17 17:20 80 104/57 02/06/17 17:00 97.2 02/06/17 17:00 80 104/57 02/06/17 17:00 20 97 02/06/17 14:07 96 109/62 02/06/17 13:45 20 02/06/17 13:14 87 100/57 (Simba Manzo MD R2) Result Diagram: 02/07/17 0456 Objective Remarks GENERAL: Well-nourished, well-developed patient. CARDIOVASCULAR: Regular rate and rhythm without murmurs, gallops, or rubs. RESPIRATORY: CTA B, normal rate ABDOMEN/GI: Abdomen soft, non-tender, bowel sounds present. Incision: Evidence of minimal serosanguineous drainage on dressing; no active drainage during exam Fundus: Firm, non-tender at umbilicus. GENITOURINARY: Light to moderate bleeding. EXTREMITIES: No cyanosis or edema, non-tender, without signs of DVT. Medications and IVs Current Medications Medications (Trade) Dose Ordered Sig/Rhoda Route Start Time Stop Time Status Last Admin (Tylenol) 650 mg Q4H PRN PO 02/05/17 10:30 (Ativan Inj) 1 mg Q4H PRN IM 02/05/17 20:30 02/06/17 20:51 (Habitrol 14 Mg Patch.24 Hr) 1 patch DAILY T-DERMAL 02/06/17 09:00 02/07/17 08:43 Fentanyl Citrate 25 mcg 25 mcg Q4HR PRN IV PUSH 02/06/17 07:30 02/06/17 07:44 (Magnesium Sulfate 40 Gm Premix) 1,000 ml @ 50 mls/hr Q20H IV 02/06/17 14:30 Calcium Gluconate 1 gm 1 gm ONCE PRN IV 02/06/17 14:00 02/07/17 13:59 Lactated Ringer's 1,000 ml @ 150 mls/hr Q6H40M IV 02/06/17 15:59 02/06/17 16:00 (Lr 1000 ml Inj) 1,000 ml @ 100 mls/hr Q10H IV 02/06/17 23:13 02/07/17 19:12 (NS Flush) 2 ml BID IV FLUSH 02/06/17 21:00 (NS Flush) 2 ml UNSCH PRN IV FLUSH 02/06/17 18:15 (Mylicon Chew) 80 mg QID PRN PO 02/06/17 18:15 (Motrin) 600 mg Q6H PRN PO 02/06/17 18:15 02/07/17 07:39 (Percocet 5-325 Mg) 1 tab Q4H PRN PO 02/06/17 18:15 (Percocet 5-325 Mg) 2 tab Q4H PRN PO 02/06/17 18:15 02/07/17 07:35 (Breanna-Colace) 2 tab Q12H PRN PO 02/06/17 18:15 (M-M-R Ii Inj) 0.5 ml ONCE ONCE SQ 02/07/17 16:00 02/07/17 16:01 (Boostrix Inj) 0.5 ml ONCE ONCE IM 02/07/17 16:00 02/07/17 16:01 (Zofran Inj) 4 mg Q6H PRN IV PUSH 02/06/17 18:15 Miscellaneous Information NO SYSTEMIC NARCOTICS TO BE GIVEN FO... UNSCH PRN .XX 02/06/17 16:12 02/07/17 16:11 (Narcan Inj) 0.4 mg UNSCH PRN IV 02/06/17 16:12 02/07/17 16:11 (Benadryl Inj) 25 mg Q6H PRN IV PUSH 02/06/17 16:12 02/07/17 16:11 (Benadryl) 50 mg Q6H PRN PO 02/06/17 16:12 02/07/17 16:11 02/07/17 08:42 Miscellaneous Information ALL NURSING DEPARTMENTS UNSCH PRN .XX 02/06/17 16:12 02/07/17 16:11 Lorazepam 1 mg 1 mg Q6H PRN PO 02/06/17 20:30 (Cleocin Inj/NS Inj) 106 ml @ 212 mls/hr Q8H IV 02/07/17 00:00 (Simba Manzo MD R2) Assessment/Plan Problem List: (1) contractions (2) No care in current Assessment and Plan 31 yo who is POD 1 from CS (repeat) 02/06 at 1636 (delivered at 30 5/7 weeks due to labor) Routine care Continue to monitor vital signs, vaginal bleeding Encourage ambulation Encourage breast feeding When necessary Motrin/Percocet Stool softener as needed Anemia Impression: Hemoglobin 7.1 this morning; was 7.8 preoperatively. Patient does not report dizziness with ambulation -Discussed with patient is morning possibility of red blood cell transfusion versus initiation of oral iron; patient does not think that she is symptomatic at this time and does not think that she needs blood transfusion. Patient agrees to continue to monitor closely and initiate transfusion if she feels more symptoms of her anemia -We'll start ferrous sulfate 325 mg twice a day Cervicitis Impression: Mucopurulent cervicitis on exam 02/05 .Wet prep with Clue cells. Chlamydia/Gonorrhea negative. -Will stop azithromycin and clindamycin Other conditions Lack of carehepatitis panel and HIV testing negative with exception of hep C antibody; patient notified of positive hep C antibody test Maternal substance abuse UDS with amphetamines, benzodiazepines, cocaine. Patient admitted to substance abuse during with IV Subutex -DCF notified --CM consulted for assistance with resources (Simba Manzo MD R2) Collaborating MD Comments Agree with management plan (Mirna Kinney MD) Simba Manzo MD R2 February 07, 2017 09:04 Mirna Kinney MD February 08, 2017 11:18
[2017-02-07] MEDS: FERROUS SULFATE 325 MG (65 MG ELEMENTAL IRON) TAB PO SCH ×2 (09:44→20:28)
[2017-02-07 09:47] LABS: BANDS 18 % (0-6); METAMYELOCYTES 1 % (0-1); NEUTROPHIL # MANUAL DIFF 18.9 TH/MM3 (1.8-7.7); POLYS (SEG NEUTROPHILS) 65 % (16-70); WBC DIFF SAMPLE 100
[2017-02-07 09:48] LABS: PLATELET ESTIMATE SMEAR NORMAL (NORMAL); PLATELET MORPHOLOGY NORMAL (NORMAL); SCAN/DIFF FINAL DIFF MANUAL
--- NOTE | 2017-02-07 13:08 | HHI.OB ---
Subjective Post Day: 1 Remarks Asked to see Ms. Reno for her chronic opioid addiction. She had started buprenorphine off the street to get off methamphetamine and IV opioids. She had not had any care. She desires to be maintained on buprenorphine. She will need to sign consents/contracts and be seen weekly in my office for UDS if she decides to go this route. She is considering and we will discuss tomorrow. Objective Vitals/I&O Vital Signs Date Time Temp Pulse Resp B/P Pulse Ox O2 Delivery O2 Flow Rate FiO2 02/07/17 07:40 97.5 73 18 02/07/17 07:40 100/53 02/07/17 01:20 78 106/57 02/07/17 01:20 98.3 18 02/06/17 19:20 97.8 02/06/17 19:20 74 18 111/61 02/06/17 17:50 72 16 105/62 100 02/06/17 17:35 76 16 108/65 100 02/06/17 17:20 16 100 02/06/17 17:20 80 104/57 02/06/17 17:00 97.2 02/06/17 17:00 80 104/57 02/06/17 17:00 20 97 02/06/17 14:07 96 109/62 02/06/17 13:45 20 02/06/17 13:14 87 100/57 Objective Remarks GENERAL: Well-nourished, well-developed patient. CARDIOVASCULAR: Regular rate and rhythm without murmurs, gallops, or rubs. RESPIRATORY: Breath sounds equal bilaterally. No accessory muscle use. ABDOMEN/GI: Abdomen soft, non-tender. Fundus: Firm, non-tender at umbilicus. GENITOURINARY: Light to moderate bleeding. EXTREMITIES: No cyanosis or edema, non-tender, without signs of DVT. Medications and IVs Current Medications Medications (Trade) Dose Ordered Sig/Rhoda Route Start Time Stop Time Status Last Admin (Tylenol) 650 mg Q4H PRN PO 02/05/17 10:30 (Ativan Inj) 1 mg Q4H PRN IM 02/05/17 20:30 02/06/17 20:51 (Habitrol 14 Mg Patch.24 Hr) 1 patch DAILY T-DERMAL 02/06/17 09:00 02/07/17 08:43 Fentanyl Citrate 25 mcg 25 mcg Q4HR PRN IV PUSH 02/06/17 07:30 02/06/17 07:44 (Magnesium Sulfate 40 Gm Premix) 1,000 ml @ 50 mls/hr Q20H IV 02/06/17 14:30 Calcium Gluconate 1 gm 1 gm ONCE PRN IV 02/06/17 14:00 02/07/17 13:59 Lactated Ringer's 1,000 ml @ 150 mls/hr Q6H40M IV 02/06/17 15:59 02/06/17 16:00 (Lr 1000 ml Inj) 1,000 ml @ 100 mls/hr Q10H IV 02/06/17 23:13 02/07/17 19:12 (NS Flush) 2 ml BID IV FLUSH 02/06/17 21:00 (NS Flush) 2 ml UNSCH PRN IV FLUSH 02/06/17 18:15 (Mylicon Chew) 80 mg QID PRN PO 02/06/17 18:15 (Motrin) 600 mg Q6H PRN PO 02/06/17 18:15 02/07/17 07:39 (Percocet 5-325 Mg) 1 tab Q4H PRN PO 02/06/17 18:15 (Percocet 5-325 Mg) 2 tab Q4H PRN PO 02/06/17 18:15 02/07/17 11:31 (Breanna-Colace) 2 tab Q12H PRN PO 02/06/17 18:15 (M-M-R Ii Inj) 0.5 ml ONCE ONCE SQ 02/07/17 16:00 02/07/17 16:01 (Boostrix Inj) 0.5 ml ONCE ONCE IM 02/07/17 16:00 02/07/17 16:01 (Zofran Inj) 4 mg Q6H PRN IV PUSH 02/06/17 18:15 Miscellaneous Information NO SYSTEMIC NARCOTICS TO BE GIVEN FO... UNSCH PRN .XX 02/06/17 16:12 02/07/17 16:11 (Narcan Inj) 0.4 mg UNSCH PRN IV 02/06/17 16:12 02/07/17 16:11 (Benadryl Inj) 25 mg Q6H PRN IV PUSH 02/06/17 16:12 02/07/17 16:11 (Benadryl) 50 mg Q6H PRN PO 02/06/17 16:12 02/07/17 16:11 02/07/17 08:42 Miscellaneous Information ALL NURSING DEPARTMENTS UNSCH PRN .XX 02/06/17 16:12 02/07/17 16:11 (Ativan) 1 mg Q6H PRN PO 02/06/17 20:30 (Ferrous Sulfate) 325 mg BID PO 02/07/17 09:15 02/07/17 09:44 Assessment/Plan Problem List: (1) contractions (2) No care in current Assessment and Plan 31 yo who is POD 1 from CS (repeat) 02/06 at 1636 (delivered at 30 5/7 weeks due to labor) Routine care Continue to monitor vital signs, vaginal bleeding Encourage ambulation Encourage breast feeding When necessary Motrin/Percocet Stool softener as needed Anemia Impression: Hemoglobin 7.1 this morning; was 7.8 preoperatively. Patient does not report dizziness with ambulation -Discussed with patient is morning possibility of red blood cell transfusion versus initiation of oral iron; patient does not think that she is symptomatic at this time and does not think that she needs blood transfusion. Patient agrees to continue to monitor closely and initiate transfusion if she feels more symptoms of her anemia -We'll start ferrous sulfate 325 mg twice a day Cervicitis Impression: Mucopurulent cervicitis on exam 02/05 .Wet prep with Clue cells. Chlamydia/Gonorrhea negative. -Treated with azithromycin and clindamycin Other conditions Lack of carehepatitis panel and HIV testing negative with exception of hep C antibody; patient notified of positive hep C antibody test Maternal substance abuse UDS with amphetamines, benzodiazepines, cocaine. Patient admitted to substance abuse during with IV Subutex -DCF notified --CM consulted for assistance with resources Jaquelin Boateng MD February 07, 2017 13:08
[2017-02-07] MEDS ORDERED: DIPHTH/TETANUS/ACEL PERTUSSIS (BOOSTER) 0.5 ML VIAL/PFS IM ONE (16:00)
[2017-02-07] MEDS ORDERED: MEASLES, MUMPS, RUBELLA VACCINE 0.5 ML VIAL SQ ONE (16:00)
[2017-02-07] MEDS: DOCUSATE SODIUM 50 MG/SENNA 8.6 MG TAB PO PRN (17:39)
[2017-02-07 20:00] VITALS: BP 107/73; PULSE 78; RESP 22; TEMP 98.1
[2017-02-07] MEDS: BUPRENORPHINE HCL 8 MG SUBLINGUAL TAB SL SCH ×2 (20:28)
[2017-02-08] MEDS: IBUPROFEN 600 MG TAB PO PRN ×3 (03:14→20:59)
[2017-02-08] MEDS: oxyCODONE/ACETAMINOPHEN 5 MG/325 MG TAB PO PRN ×4 (03:14→19:47)
[2017-02-08] MEDS: BUPRENORPHINE HCL 8 MG SUBLINGUAL TAB SL SCH ×4 (03:15→20:59)
[2017-02-08 03:52] LABS: HSV 2 IGG AB LESS THAN 0.90 INDEX (())
[2017-02-08 07:41] VITALS: BP 103/64; PULSE 63; RESP 16; TEMP 98.4
[2017-02-08] MEDS: NICOTINE 14 MG/24 HR PATCH T-DERMAL SCH (08:01)
[2017-02-08] MEDS: FERROUS SULFATE 325 MG (65 MG ELEMENTAL IRON) TAB PO SCH ×2 (08:10→20:59)
--- NOTE | 2017-02-08 08:11 | HHI.OB ---
Subjective Post Operative Day: 2 Remarks Anxious to addressing addiction. in NICU. DCF is now involved. Complaining of scotoma, minimal pain but significant bloating an has not yet had a bowel movement. States she began street buprenorphine to get off other drugs and feels she can wean off the subutox "when the baby is out of NICU" and go to [facility]. Objective Vitals/I&O Vital Signs Date Time Temp Pulse Resp B/P Pulse Ox O2 Delivery O2 Flow Rate FiO2 02/08/17 07:41 98.4 63 16 103/64 02/07/17 20:00 98.1 78 22 107/73 Result Diagram: 02/07/17 0456 Objective Remarks GENERAL: Well-nourished, well-developed patient. CARDIOVASCULAR: Regular rate and rhythm without murmurs, gallops, or rubs. RESPIRATORY: CTA B, normal rate ABDOMEN/GI: Abdomen soft, non-tender, bowel sounds present. Incision: Evidence of minimal serosanguineous drainage on dressing; no active drainage during exam Fundus: Firm, non-tender at umbilicus. GENITOURINARY: Light to moderate bleeding. EXTREMITIES: No cyanosis or edema, non-tender, without signs of DVT. Medications and IVs Current Medications Medications (Trade) Dose Ordered Sig/Rhoda Route Start Time Stop Time Status Last Admin (Tylenol) 650 mg Q4H PRN PO 02/05/17 10:30 (Ativan Inj) 1 mg Q4H PRN IM 02/05/17 20:30 02/06/17 20:51 (Habitrol 14 Mg Patch.24 Hr) 1 patch DAILY T-DERMAL 02/06/17 09:00 02/08/17 08:01 Fentanyl Citrate 25 mcg 25 mcg Q4HR PRN IV PUSH 02/06/17 07:30 02/06/17 07:44 Magnesium Sulfate 1,000 ml @ 50 mls/hr Q20H IV 02/06/17 14:30 (Lr 1000 ml Inj) 1,000 ml @ 150 mls/hr Q6H40M IV 02/06/17 15:59 02/06/17 16:00 (NS Flush) 2 ml BID IV FLUSH 02/06/17 21:00 (NS Flush) 2 ml UNSCH PRN IV FLUSH 02/06/17 18:15 (Mylicon Chew) 80 mg QID PRN PO 02/06/17 18:15 (Motrin) 600 mg Q6H PRN PO 02/06/17 18:15 02/08/17 03:14 (Percocet 5-325 Mg) 1 tab Q4H PRN PO 02/06/17 18:15 (Percocet 5-325 Mg) 2 tab Q4H PRN PO 02/06/17 18:15 02/08/17 08:00 (Breanna-Colace) 2 tab Q12H PRN PO 02/06/17 18:15 02/07/17 17:39 (Zofran Inj) 4 mg Q6H PRN IV PUSH 02/06/17 18:15 (Ativan) 1 mg Q6H PRN PO 02/06/17 20:30 (Ferrous Sulfate) 325 mg BID PO 02/07/17 09:15 02/07/17 20:28 (Buprenorphine) 4 mg Q6H SL 02/07/17 21:00 02/08/17 07:59 Assessment/Plan Problem List: (1) contractions (2) No care in current Assessment and Plan POD 2 s/p emergent section at 30 weeks tox screen + opioids, cocaine, meth hopes to go to [facility] (will need to detox at [place]) significant anemia Attending Attestation currently on buprenorphine 4 mg every 6 hours discussed going home without percocet and using only motrin needs iron for anemia needs to address constipation discharge to "home" tomorrow but need to assess just where that will be. Jaquelin Boateng MD February 08, 2017 08:11
[2017-02-08] MEDS ORDERED: diphenhydrAMINE HCL 50 MG CAP PO PRN (08:30)
[2017-02-08] MEDS: POLYETHYLENE GLYCOL 17 GM PKG PO SCH (09:00)
--- NOTE | 2017-02-08 09:10 | HHI.OB ---
Subjective Post Operative Day: 2 Remarks Ms. Reno is a 31 yo who is POD 2 from CS (repeat) 02/06 at 1636 ( delivered at 30 5/7 weeks due to labor). Ms. Reno was afebrile with stable vital signs. Patient states that she is doing well at this time with exception of increased lightheadedness. Patient is ambulating and still reports mild dysuria. Patient reports bilateral breast tenderness. Patient reports her pain is controlled with medications at this time. Patient passing gas; no bowel movement. Patient reports persistent light vaginal bleeding. No shortness of breath or leg swelling. Patient states that per her discussions with Dr. Boateng she is open to going to [facility]. Objective Vitals/I&O Vital Signs Date Time Temp Pulse Resp B/P Pulse Ox O2 Delivery O2 Flow Rate FiO2 02/08/17 07:41 98.4 63 16 103/64 02/07/17 20:00 98.1 78 22 107/73 Result Diagram: 02/07/17 0456 Objective Remarks GENERAL: Well-nourished, well-developed patient. CARDIOVASCULAR: Regular rate and rhythm without murmurs, gallops, or rubs. RESPIRATORY: CTA B, normal rate ABDOMEN/GI: Abdomen soft, non-tender, bowel sounds present. Incision: No active bleeding or drainage. No erythema. Fundus: Firm, non-tender at umbilicus. GENITOURINARY: Light to moderate bleeding. EXTREMITIES: No cyanosis or edema, non-tender, without signs of DVT. Medications and IVs Current Medications Medications (Trade) Dose Ordered Sig/[facility] Route Start Time Stop Time Status Last Admin (Tylenol) 650 mg Q4H PRN PO 02/05/17 10:30 (Ativan Inj) 1 mg Q4H PRN IM 02/05/17 20:30 02/06/17 20:51 (Habitrol 14 Mg Patch.24 Hr) 1 patch DAILY T-DERMAL 02/06/17 09:00 02/08/17 08:01 Fentanyl Citrate 25 mcg 25 mcg Q4HR PRN IV PUSH 02/06/17 07:30 02/06/17 07:44 Magnesium Sulfate 1,000 ml @ 50 mls/hr Q20H IV 02/06/17 14:30 (Lr 1000 ml Inj) 1,000 ml @ 150 mls/hr Q6H40M IV 02/06/17 15:59 02/06/17 16:00 (NS Flush) 2 ml BID IV FLUSH 02/06/17 21:00 (NS Flush) 2 ml UNSCH PRN IV FLUSH 02/06/17 18:15 (Mylicon Chew) 80 mg QID PRN PO 02/06/17 18:15 (Motrin) 600 mg Q6H PRN PO 02/06/17 18:15 02/08/17 03:14 (Percocet 5-325 Mg) 1 tab Q4H PRN PO 02/06/17 18:15 (Percocet 5-325 Mg) 2 tab Q4H PRN PO 02/06/17 18:15 02/08/17 08:00 (Breanna-Colace) 2 tab Q12H PRN PO 02/06/17 18:15 02/07/17 17:39 (Zofran Inj) 4 mg Q6H PRN IV PUSH 02/06/17 18:15 (Ativan) 1 mg Q6H PRN PO 02/06/17 20:30 (Ferrous Sulfate) 325 mg BID PO 02/07/17 09:15 02/08/17 08:10 (Buprenorphine) 4 mg Q6H SL 02/07/17 21:00 02/08/17 07:59 (Miralax) 17 gm DAILY PO 02/08/17 09:00 (Mylicon Chew) 80 mg PCHS CHEW 02/08/17 09:30 (Benadryl) 50 mg Q6H PRN PO 02/08/17 08:30 Assessment/Plan Problem List: (1) No care in current (2) care following delivery Assessment and Plan 31 yo who is POD 2 from CS (repeat) 02/06 at 1636 (delivered at 30 5/7 weeks due to labor) Routine care Continue to monitor vital signs, vaginal bleeding Encourage ambulation Encourage breast feeding When necessary Motrin/Percocet Stool softener as needed Anemia Impression: Hemoglobin 7.1 /4; was 7.8 preoperatively. Patient does not report dizziness with ambulation -Discussed with patient is morning possibility of red blood cell transfusion versus initiation of oral iron; patient does not think that she is symptomatic at this time and does not think that she needs blood transfusion. Patient agrees to continue to monitor closely and initiate transfusion if she feels more symptoms of her anemia -Continue ferrous sulfate 325 mg twice a day -Repeat CBC due to increased lightheadedness Other conditions Lack of carehepatitis panel and HIV testing negative with exception of hep C antibody; patient notified of positive hep C antibody test Maternal substance abuse UDS with amphetamines, benzodiazepines, cocaine. Patient admitted to substance abuse during with IV Subutex -DCF notified --CM consulted for assistance with resources -Dr. Boateng consulted; post discharge detox/ rehab plans being made Cervicitis Impression: Mucopurulent cervicitis on exam 02/05 .Wet prep with Clue cells. Chlamydia/Gonorrhea negative. -Stopped azithromycin and clindamycin 02/07 Discharge Planning Anticipate discharge tomorrow Simba Manzo MD R2 February 08, 2017 09:10
[2017-02-08] MEDS: SIMETHICONE 80 MG CHEWABLE TAB CHEW SCH ×4 (09:30→22:59)
[2017-02-08 11:31] LABS: HEMATOCRIT 22.9 % (35.0-46.0); MEAN CELL VOLUME 81.7 FL (80.0-100.0); MEAN CORPUSCULAR HEMOGLOBIN 28.3 PG (27.0-34.0); MEAN CORPUSCULAR HGB CONC 34.7 % (32.0-36.0); PLATELET COUNT 466 TH/MM3 (150-450); RED BLOOD COUNT 2.81 MIL/MM3 (4.00-5.30); RED CELL DISTRIBUTION WIDTH 14.2 % (11.6-17.2); REVIEW FLAG FINAL; WHITE BLOOD COUNT 15.3 TH/MM3 (4.0-11.0)
[2017-02-08] MEDS: DOCUSATE SODIUM 50 MG/SENNA 8.6 MG TAB PO PRN (15:09)
[2017-02-08] MEDS: LORazepam 1 MG TAB PO PRN ×2 (15:10→22:59)
[2017-02-08 15:50] VITALS: BP 111/68; PULSE 54; RESP 18
[2017-02-08 17:55] LABS: PARVOVIRUS B19 IGG 0.2 (())
[2017-02-08 19:40] VITALS: BP 108/70; PULSE 65; RESP 16; TEMP 98.4
[2017-02-08 23:00] VITALS: BP 108/58; PULSE 61; RESP 18; TEMP 98.1; O2SAT 99
[2017-02-09] MEDS: IBUPROFEN 600 MG TAB PO PRN ×2 (02:57→09:06)
[2017-02-09] MEDS: BUPRENORPHINE HCL 8 MG SUBLINGUAL TAB SL SCH ×2 (02:58→09:04)
[2017-02-09] MEDS: oxyCODONE/ACETAMINOPHEN 5 MG/325 MG TAB PO PRN ×2 (02:58→09:04)
[2017-02-09] MEDS: DOCUSATE SODIUM 50 MG/SENNA 8.6 MG TAB PO PRN (03:01)
[2017-02-09] MEDS: LORazepam 1 MG TAB PO PRN (09:03)
[2017-02-09] MEDS: FERROUS SULFATE 325 MG (65 MG ELEMENTAL IRON) TAB PO SCH (09:03)
[2017-02-09] MEDS: NICOTINE 14 MG/24 HR PATCH T-DERMAL SCH (09:05)
[2017-02-09 09:06] VITALS: BP 122/79; PULSE 80; RESP 18; TEMP 98.3
[2017-02-09] MEDS: POLYETHYLENE GLYCOL 17 GM PKG PO SCH (09:09)
--- NOTE | 2017-02-09 09:14 | HHI.DCPOC ---
Discharge Care Plan Diagnosis: (1) care following delivery (2) Drug use Report Symptoms to Your Doctor -Temperate above 100.5 degrees -Redness, of incision or excessive or foul smelling drainage -Unusual pain or calf pain -Increased vaginal bleeding -Painful or difficulty urinating -Feelings of extreme sadness or anxiety after 2 weeks Goals to Promote Your Health * To prevent worsening of your condition and complications * To maintain your health at the optimal level Directions to Meet Your Goals Take your medications as prescribed Follow your dietary instruction Follow activity as directed Ensure plenty of rest for recovery Drink fluids for hydration Keep your appointments as scheduled Take your immunizations and boosters as scheduled If your symptoms worsen call your PCP, if no PCP go to Urgent Care Center or Emergency Room Smoking is Dangerous to Your Health. Avoid second hand smoke Call the 24-hour crisis hotline for domestic abuse at Simba Manzo MD R2 February 09, 2017 09:14
[2017-02-09] MEDS ORDERED: IBUP-232 PO (09:15)
[2017-02-09] MEDS ORDERED: SENN1TAB PO (09:15)
[2017-02-09] MEDS ORDERED: FERR325T PO (09:15)
--- NOTE | 2017-02-09 09:46 | HHI.OB ---
Subjective Post Operative Day: 3 Remarks Ms. Reno is a 31 yo who is POD 3 from CS (repeat) 02/06 at 1636 ( delivered at 30 5/7 weeks due to labor). Ms. Reno was afebrile with stable vital signs. Patient reports that she saw "spots" last night but feels ok now. Patient denies lightheadedness with ambulation.Patient reports abdominal pain and swelling. Patient passing gas normally. No dysuria reported. Patient reports persistent light vaginal bleeding. No shortness of breath or leg swelling. (Simba Manzo MD R2) Objective Vitals/I&O Vital Signs Date Time Temp Pulse Resp B/P Pulse Ox O2 Delivery O2 Flow Rate FiO2 02/09/17 09:06 98.3 80 18 122/79 02/08/17 23:00 108/58 02/08/17 23:00 98.1 61 18 99 02/08/17 19:40 98.4 65 16 108/70 02/08/17 15:50 54 18 111/68 (Simba Manzo MD R2) Objective Remarks GENERAL: Well-nourished, well-developed patient. CARDIOVASCULAR: Regular rate and rhythm without murmurs, gallops, or rubs. RESPIRATORY: CTA B, normal rate ABDOMEN/GI: Abdomen soft, non-tender, bowel sounds present. Incision- no suggestion of infection at this time Fundus: Firm, non-tender at umbilicus. GENITOURINARY: Light to moderate bleeding. EXTREMITIES: No cyanosis or edema, non-tender, without signs of DVT. Medications and IVs Current Medications Medications (Trade) Dose Ordered Sig/Rhoda Route Start Time Stop Time Status Last Admin (Tylenol) 650 mg Q4H PRN PO 02/05/17 10:30 (Ativan Inj) 1 mg Q4H PRN IM 02/05/17 20:30 02/06/17 20:51 (Habitrol 14 Mg Patch.24 Hr) 1 patch DAILY T-DERMAL 02/06/17 09:00 02/09/17 09:05 Fentanyl Citrate 25 mcg 25 mcg Q4HR PRN IV PUSH 02/06/17 07:30 02/06/17 07:44 Magnesium Sulfate 1,000 ml @ 50 mls/hr Q20H IV 02/06/17 14:30 (Lr 1000 ml Inj) 1,000 ml @ 150 mls/hr Q6H40M IV 02/06/17 15:59 02/06/17 16:00 (NS Flush) 2 ml BID IV FLUSH 02/06/17 21:00 (NS Flush) 2 ml UNSCH PRN IV FLUSH 02/06/17 18:15 (Mylicon Chew) 80 mg QID PRN PO 02/06/17 18:15 02/09/17 09:03 (Motrin) 600 mg Q6H PRN PO 02/06/17 18:15 02/09/17 09:06 (Percocet 5-325 Mg) 1 tab Q4H PRN PO 02/06/17 18:15 (Percocet 5-325 Mg) 2 tab Q4H PRN PO 02/06/17 18:15 02/09/17 09:04 (Breanna-Colace) 2 tab Q12H PRN PO 02/06/17 18:15 02/09/17 03:01 (Zofran Inj) 4 mg Q6H PRN IV PUSH 02/06/17 18:15 (Ativan) 1 mg Q6H PRN PO 02/06/17 20:30 02/09/17 09:03 (Ferrous Sulfate) 325 mg BID PO 02/07/17 09:15 02/09/17 09:03 (Buprenorphine) 4 mg Q6H SL 02/07/17 21:00 02/09/17 09:04 (Miralax) 17 gm DAILY PO 02/08/17 09:00 02/09/17 09:09 (Mylicon Chew) 80 mg PCHS CHEW 02/08/17 09:30 02/08/17 22:59 (Benadryl) 50 mg Q6H PRN PO 02/08/17 08:30 (Simba Manzo MD R2) Assessment/Plan Problem List: (1) No care in current (2) care following delivery Assessment and Plan 31 yo who is POD 3 from CS (repeat) 02/06 at 1636 (delivered at 30 5/7 weeks due to labor) Routine care Continue to monitor vital signs, vaginal bleeding Encourage ambulation Encourage breast feeding When necessary Motrin/Percocet Stool softener as needed Anemia Impression: Hemoglobin 7.8 02/08; increased from 7.1 02/07 Patient does not report lightheadedness on ambulation -Discussed with patient is morning possibility of red blood cell transfusion versus initiation of oral iron 02/08; patient did not think that she is symptomatic at this time and did not think that she needs blood transfusion. Patient agrees to continue to monitor closely and initiate transfusion if she feels more symptoms of her anemia -Continue ferrous sulfate 325 mg twice a day Other conditions Lack of carehepatitis panel and HIV testing negative with exception of hep C antibody; patient notified of positive hep C antibody test Maternal substance abuse UDS with amphetamines, benzodiazepines, cocaine. Patient admitted to substance abuse during with IV Subutex -DCF notified --CM consulted for assistance with resources -Dr. Boateng consulted; post discharge detox/ rehab plans being made Cervicitis Impression: Mucopurulent cervicitis on exam 02/05 .Wet prep with Clue cells. Chlamydia/Gonorrhea negative. -Stopped azithromycin and clindamycin 02/07 Discharge Planning Anticipate discharge tomorrow (Simba Manzo MD R2) Collaborating MD Comments Agree with above management. Patient is presently asymptomatic and had chronic anemia preop. No significant change in her blood count at this time (Mirna Kinney MD) Simba Manzo MD R2 February 09, 2017 09:46 Mirna Kinney MD February 19, 2017 13:25
--- NOTE | 2017-02-09 12:16 | HHI.OB ---
Subjective Post Operative Day: 3 Remarks Remains painful and has used ativan, percocet and the restarted subutex along with motrin. She wants to go home with subutex and motrin only. She wants to follow up with me and go to detox at [place] so that the baby can eventually be discharged from NICU to [facility], where she hopes to be residing. Her partner remains in addiction "on and off" and seeking treatment at [facility], She did go to [facility] for a few days about two years ago (not ) but "wasn't ready" ambulating and voiding well. denies significant constipation Objective Vitals/I&O Vital Signs Date Time Temp Pulse Resp B/P Pulse Ox O2 Delivery O2 Flow Rate FiO2 02/09/17 09:06 98.3 80 18 122/79 02/08/17 23:00 108/58 02/08/17 23:00 98.1 61 18 99 02/08/17 19:40 98.4 65 16 108/70 02/08/17 15:50 54 18 111/68 Result Diagram: 02/08/17 1045 Objective Remarks GENERAL: Well-nourished, well-developed patient. CARDIOVASCULAR: Regular rate and rhythm without murmurs, gallops, or rubs. RESPIRATORY: CTA B, normal rate ABDOMEN/GI: Abdomen soft, non-tender, bowel sounds present. Incision- no suggestion of infection at this time Fundus: Firm, non-tender at umbilicus. GENITOURINARY: Light to moderate bleeding. EXTREMITIES: No cyanosis or edema, non-tender, without signs of DVT. Medications and IVs Current Medications Medications (Trade) Dose Ordered Sig/Rhoda Route Start Time Stop Time Status Last Admin (Tylenol) 650 mg Q4H PRN PO 02/05/17 10:30 (Ativan Inj) 1 mg Q4H PRN IM 02/05/17 20:30 02/06/17 20:51 (Habitrol 14 Mg Patch.24 Hr) 1 patch DAILY T-DERMAL 02/06/17 09:00 02/09/17 09:05 Fentanyl Citrate 25 mcg 25 mcg Q4HR PRN IV PUSH 02/06/17 07:30 02/06/17 07:44 Magnesium Sulfate 1,000 ml @ 50 mls/hr Q20H IV 02/06/17 14:30 (Lr 1000 ml Inj) 1,000 ml @ 150 mls/hr Q6H40M IV 02/06/17 15:59 02/06/17 16:00 (NS Flush) 2 ml BID IV FLUSH 02/06/17 21:00 (NS Flush) 2 ml UNSCH PRN IV FLUSH 02/06/17 18:15 (Mylicon Chew) 80 mg QID PRN PO 02/06/17 18:15 02/09/17 09:03 (Motrin) 600 mg Q6H PRN PO 02/06/17 18:15 02/09/17 09:06 (Percocet 5-325 Mg) 1 tab Q4H PRN PO 02/06/17 18:15 (Percocet 5-325 Mg) 2 tab Q4H PRN PO 02/06/17 18:15 02/09/17 09:04 (Breanna-Colace) 2 tab Q12H PRN PO 02/06/17 18:15 02/09/17 03:01 (Zofran Inj) 4 mg Q6H PRN IV PUSH 02/06/17 18:15 (Ativan) 1 mg Q6H PRN PO 02/06/17 20:30 02/09/17 09:03 (Ferrous Sulfate) 325 mg BID PO 02/07/17 09:15 02/09/17 09:03 (Buprenorphine) 4 mg Q6H SL 02/07/17 21:00 02/09/17 09:04 (Miralax) 17 gm DAILY PO 02/08/17 09:00 02/09/17 09:09 (Mylicon Chew) 80 mg PCHS CHEW 02/08/17 09:30 02/08/17 22:59 (Benadryl) 50 mg Q6H PRN PO 02/08/17 08:30 Assessment/Plan Problem List: (1) No care in current (2) care following delivery Assessment and Plan 31 yo who is POD 3 from CS (repeat) 02/06 at 1636 (delivered at 30 5/7 weeks due to labor) -Continue ferrous sulfate 325 mg twice a day Extended conversation about opioid receptors, active addiction, detox and risk of relapse. She wants to go home with subutex and I am added zoloft, also motrin and iron. She can come to my office in one week. I explained that with the very dirty urine on admission, the suboxone will not be covered by medicaid. She will need to have authorization through my office, which needs a clean UA and consents and contracts signed. Hopefully she will follow through. [facility] and [facility] are involved. Discharge Planning Anticipate discharge tomorrow Jaquelin Boateng MD February 09, 2017 12:15
[2017-02-09] MEDS ORDERED: BUPR8SUB SL (12:17)
[2017-02-09] MEDS ORDERED: SERT-132 PO (12:19)
[2017-02-09 15:51] LABS: RUBELLA IGG 4.75 INDEX (())
[2017-02-11 09:45] LABS: BATH SALTS (MDPV) UR NEG (NEG); ECSTASY (MDMA) UR NEG (NEG); GABAPENTIN UR NEG (NEG); HEROIN (6-ACETYLMORPHINE) UR NEG (NEG); HYDROMORPHONE U NEG (NEG); K2 SPICE UR NEG (NEG); OBMETHADONE UR NEG (NEG); OXYCODONE (PERCODAN) NEG (NEG); PHENCYCLIDINE URINE NEG (NEG)
[2017-02-12 13:42] LABS: TOXOPLASMA IGM AB NEGATIVE (NEGATIVE)
== END 2017-02-09 13:02 | disposition home or self-care (01) | DRG 765 ==
LOC: HOBED 09:21 → H2EB 13:20 → OBSVTOIN 02-06 15:32 → H1EA 02-06 18:24
PROVIDERS: ADMIT Obstetrics & Gynecology Maternal & Fetal Medicine; ATTEND Obstetrics & Gynecology Maternal & Fetal Medicine
PROC: 10D00Z1 Extraction of Products of Conception, Low, Open Approach (ICD-10-PCS; principal; 2017-02-06)
DX: O60.14X0 Preterm labor third trimester with preterm delivery third trimester, not applicable or unspecified (principal); O75.3 Other infection during labor; O99.324 Drug use complicating childbirth; Z37.0 Single live birth; Z3A.30 30 weeks gestation of pregnancy; O34.211 Maternal care for low transverse scar from previous cesarean delivery; F13.10 Sedative, hypnotic or anxiolytic abuse, uncomplicated; O99.334 Smoking (tobacco) complicating childbirth; N72 Inflammatory disease of cervix uteri; F15.10 Other stimulant abuse, uncomplicated; F14.10 Cocaine abuse, uncomplicated; O99.02 Anemia complicating childbirth; D64.9 Anemia, unspecified; O32.4XX0 Maternal care for high head at term, not applicable or unspecified
CPT/HCPCS: 76805; 80074; 80307; 81001; 82731; 82805; 84112; 85007; 85025; 85027; 86592; 86644; 86695; 86696; 86703; 86747; 86762; 86777; 86778; 86850; 86900; 86901; 87086; 87210; 87491; 87591; 88307; 90715; 96361; 96365; 96372; 96375; 96376; C9290; G0378; G0481; J0131; J0456; J0592; J0702; J2060; J2274; J2590; J3010; J3105; J3475; J7040; J7050; J7120; Q0163